=== PATIENT | female | born 1995 | race Caucasian/White ===

== ENCOUNTER 2016-08-20 00:56 | Emergency (ER) | payer BC ==
[~2016-08-20] VITALS: Ht 162.6 cm; Wt 62.3 kg
[2016-08-20 01:04] VITALS: BP 149/101; TEMP 37; O2SAT 100; Ht 162.6 cm; Wt 62.3 kg
[2016-08-20] MEDS ORDERED: DOXY100C76 PO (01:30)
[2016-08-20 01:38] VITALS: PULSE 72
[2016-08-20 01:47] VITALS: O2SAT 99
[2016-08-20] MEDS ORDERED: LIDOCAINE HCL 2% VISC SOLN 20 ML UDC PO STA (01:54)
[2016-08-20] MEDS ORDERED: ALUMINUM/MAGNESIUM SUSP 30 ML UDC PO STA (01:54)
--- NOTE | 2016-08-20 02:00 | EMERGENCY ROOM VISIT NOTE ---
History Report prepared by Shira: Leo Wilder Under the Supervision of: Dr. Anamika Blankenship D.O. First contact with patient: 01:26 Chief Complaint: ABDOMINAL PAIN Stated Complaint: SHARP PIAN IN ABD & INTO CHEST Nursing Triage Summary: see triage note. pt laughing with guests, appears in nad. History of Present Illness The patient is a 21 year old female who presents to the Emergency Room with complaints of persistent chest pain that started 4 days ago. The patient described the discomfort as chest tightness. She presented to [facility] for evaluation and they thought it was stress-related. Today, the discomfort worsened and spread to her abdomen. The patient went back to [facility] and had an laboratory studies an EKG . Her results were clear. 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 About 4 hours ago, the patient's symptoms worsened Source of History: patient Onset: 4 days ago Position: chest Quality: sharp, other (tightness) Timing: other (persistent) Modifying Factors (Worsening): movement (walking) Modifying Factors (Relieving): rest (laying down) Associated Symptoms: + abdominal pain, No cough, No sorethroat Review of Systems See HPI for pertinent positives & negatives. A total of 10 systems reviewed and were otherwise negative. Past Medical & Surgical Medical Problems: (1) No Known Active Medical Problems Family History No pertinent family history Social History Smoking Status: Never Smoker Alcohol Use: occasionally Marital Status: single Housing Status: lives with roommate Occupation Status: [employer] student Current/Historical Medications Miscellaneous Medications Doxycycline Monohydrate (Monodox), 100 MG PO Allergies Coded Allergies: No Known Allergies (Unverified , 08/20/16) Physical Exam Vital Signs Date Time Temp Pulse Resp B/P Pulse Ox O2 Delivery O2 Flow Rate FiO2 08/20/16 01:47 99 Room Air 08/20/16 01:38 72 08/20/16 01:04 37.0 76 24 149/101 100 Room Air Physical Exam HEENT: Head - normocephalic and atraumatic Pupils are equal, round, and reactive to light. Extraocular eye muscles are intact, and sclera are anicteric. Nose - moist nasal mucosa without discharge. Mouth - moist buccal mucosa. Oropharynx is nonerythematous and there is no tonsillar exudate or edema noted. Neck: Supple; no JVD, nuchal rigidity, cervical lymphadenopathy, or auscultated bruits. Heart: Regular rate and rhythm. There is a normal S1 and S2 with no murmurs, clicks, or gallops appreciated. Lungs: Clear to auscultation bilaterally with no wheezes, rales, or rhonchi. Abdomen: Soft, completely nontender, nondistended, with good bowel sounds. There are no palpable pulsatile masses or hepatosplenomegaly. There is no guarding, rigidity, or rebound noted. Extremities: No evidence of cyanosis, clubbing, or edema. There are easily palpable peripheral pulses. Skin: warm and dry with good turgor and no rashes. Medical Decision & Procedures ER Provider Diagnostic Interpretation: X-ray results as stated below per interpretation by me and the radiologist: Chest X-Ray 2 Views: Normal cardiac silhouette, no pulmonary infiltrate or effusions. Laboratory Results 08/20/16 01:45 Red Blood Count 4.89, Mean Corpuscular Volume 84.0, Mean Corpuscular Hemoglobin 29.9, Mean Corpuscular Hemoglobin Concent 35.5, Mean Platelet Volume 9.9, Neutrophils (%) (Auto) 54.6, Lymphocytes (%) (Auto) 33.8, Monocytes (%) (Auto) 9.9, Eosinophils (%) (Auto) 1.1, Basophils (%) (Auto) 0.4, Neutrophils # (Auto) 2.94, Lymphocytes # (Auto) 1.82, Monocytes # (Auto) 0.53, Eosinophils # (Auto) 0.06, Basophils # (Auto) 0.02 08/20/16 01:45 Test 08/20/16 01:45 White Blood Count 5.38 K/uL (4.8-10.8) Red Blood Count 4.89 M/uL (4.2-5.4) Hemoglobin 14.6 g/dL (12.0-16.0) Hematocrit 41.1 % (37-47) Mean Corpuscular Volume 84.0 fL (80-100) Mean Corpuscular Hemoglobin 29.9 pg (25-34) Mean Corpuscular Hemoglobin Concent 35.5 g/dl (32-36) Platelet Count 232 K/uL (130-400) Mean Platelet Volume 9.9 fL (7.4-10.4) Neutrophils (%) (Auto) 54.6 % Lymphocytes (%) (Auto) 33.8 % Monocytes (%) (Auto) 9.9 % Eosinophils (%) (Auto) 1.1 % Basophils (%) (Auto) 0.4 % Neutrophils # (Auto) 2.94 K/uL (1.4-6.5) Lymphocytes # (Auto) 1.82 K/uL (1.2-3.4) Monocytes # (Auto) 0.53 K/uL (0.11-0.59) Eosinophils # (Auto) 0.06 K/uL (0-0.5) Basophils # (Auto) 0.02 K/uL (0-0.2) RDW Standard Deviation 37.1 fL (36.4-46.3) RDW Coefficient of Variation 12.2 % (11.5-14.5) Immature Granulocyte % (Auto) 0.2 % Immature Granulocyte # (Auto) 0.01 K/uL (0.00-0.02) D-Dimer < 190 ug/L FEU (0-500) Anion Gap 9.0 mmol/L (3-11) Est Creatinine Clear Calc Drug Dose 104.8 ml/min Estimated GFR () 135.2 Estimated GFR (Non- 116.6 BUN/Creatinine Ratio 11.2 (10-20) Calcium Level 8.6 mg/dl (8.5-10.1) Total Bilirubin 0.5 mg/dl (0.2-1) Direct Bilirubin 0.1 mg/dl (0-0.2) Aspartate Amino Transf (AST/SGOT) 12 U/L (15-37) Alanine Aminotransferase (ALT/SGPT) 19 U/L (12-78) Alkaline Phosphatase 59 U/L (45-117) Total Creatine Kinase 111 U/L (26-192) Creatine Kinase MB < 0.5 ng/ml (0.5-3.6) Creatine Kinase MB Ratio (0-3.0) Troponin I < 0.015 ng/ml (0-0.045) Total Protein 8.0 gm/dl (6.4-8.2) Albumin 4.5 gm/dl (3.4-5.0) Lipase 121 U/L (73-393) Laboratory results per my review. Procedure Maalox Susp PO Lidocaine HCl PO ECG Indication: chest pain Rate (beats per minute): 64 Rhythm: normal sinus Findings: no acute ischemic change, no ectopy ED Course 0147: Past medical records reviewed. The patient was evaluated in room A9. A complete history and physical exam was performed. A twelve-lead EKG was obtained as described above. An IV lock was initiated and labs were drawn as above. 0154: Ordered Maalox Susp 30 ml PO, Lidocaine HCl 10 ml PO. 0320: Upon reevaluation, the patient is feeling better after the GI cocktail. I discussed findings and results with the patient. She verbalized agreement of the treatment plan. The patient was discharged home. Medical Decision The patient is a 21 year old female who presents to the Emergency Room with complaints of persistent chest pain. Differential diagnoses include: anxiety, pleurisy, GERD, medication side effects , ulcerative disease, costochondritis, pancreatitis, PE, pneumonia. Labs reviewed by me: Glucose 114 negative troponin normal renal function normal WBCs stable H&H lipase normal 121 d-dimer <0.19 The patient presents to the emergency department with discomfort in her chest over the past couple of days. There is some pain seems to radiate into her abdomen as well. On physical exam, the patient's pain is in the epigastrium and is reproducible. I believe her symptoms are GI related. This could be secondary to the doxycycline or GERD. The patient had moderate relief of her symptoms with the GI cocktail. I've encouraged her to continue taking acid reducing medication and continued use Tums as necessary. She should follow-up with student health services if symptoms persist for further evaluation and referral to GI. Impression Primary Impression: Epigastric abdominal pain Scribe Attestation The scribe's documentation has been prepared under my direction and personally reviewed by me in its entirety. I confirm that the note above accurately reflects all work, treatment, procedures, and medical decision making performed by me. Departure Information Dispostion Home / Self-Care Referrals [facility] (PCP) Patient Instructions My [facility]
[2016-08-20 04:07] LABS: ALKALINE PHOSPHATASE 59 U/L (45-117); ALT/SGPT 19 U/L (12-78); AST/SGOT 12 U/L (15-37); BLOOD UREA NITROGEN 8 mg/dl (7-18); BUN/CREATININE RATIO 11.2 (10-20); CALCIUM 8.6 mg/dl (8.5-10.1); CARBON DIOXIDE 27 mmol/L (21-32); CHLORIDE 106 mmol/L (98-107); CREATININE 0.74 mg/dl (0.60-1.20); GLUCOSE 114 mg/dl (70-99); POTASSIUM 3.7 mmol/L (3.5-5.1); SODIUM 142 mmol/L (136-145)
[2016-08-20 04:10] LABS: BASO % 0.4 %; BASO ABS # 0.02 K/uL (0-0.2); COMPLETE YES; EOS % 1.1 %; HEMATOCRIT 41.1 % (37-47); IG% 0.2 %; LYMPH % 33.8 %; LYMPH ABS # 1.82 K/uL (1.2-3.4); MEAN CORPUSCULAR HEMOGLOBIN 29.9 pg (25-34); MEAN CORPUSCULAR HGB CONC 35.5 g/dl (32-36); MEAN PLATELET VOLUME 9.9 fL (7.4-10.4); MONO % 9.9 %; NEUT % 54.6 %; PLATELET COUNT 232 K/uL (130-400); RED BLOOD COUNT 4.89 M/uL (4.2-5.4); WHITE BLOOD COUNT 5.38 K/uL (4.8-10.8)
--- NOTE | 2016-08-20 06:58 | DIAGNOSTIC IMAGING REPORT ---
CHEST 2 VIEWS ROUTINE CLINICAL HISTORY: Atypical chest pain chest tightness COMPARISON STUDY: No previous studies for comparison. FINDINGS: The cardiac and mediastinal contours are normal. There is no evidence of focal pulmonary consolidation. There is no evidence of failure. No pleural effusions are visualized.[ IMPRESSION: No active disease in the chest. Electronically signed by: Fermin Bear M.D. 08/20/2016 6:57 AM Dictated Date/Time: 08/20/2016 6:57 AM
== END 2016-08-20 03:25 | disposition home or self-care (01) ==
LOC: C.EDB 00:57 → C.EDA 03:25
DX: R10.13 Epigastric pain (principal); Z79.2 Long term (current) use of antibiotics